=== PATIENT | female | born 1940 | race Hispanic/Latino ===

== ENCOUNTER 2016-08-30 18:02 | Emergency (ER) | payer MEDICARE ==
[2016-08-30 18:59] LABS: Basophils % (Auto) 0.7 % (0.0-1.8); Eosinophils % (Auto) 1.5 % (0.0-4.3); Hematocrit 42.2 % (30.3-42.9); Mean Corpuscular HGB Conc 33 % (30-34); Mean Corpuscular Hemoglobin 31 pg (28-32); Mean Corpuscular Volume 92 fl (79-97); Platelet Count 166 K/mm3 (140-440); Red Blood Count 4.57 M/mm3 (3.65-5.03); Red Cell Distribution Width 15.4 % (13.2-15.2); White Blood Count 8.2 K/mm3 (4.5-11.0)
[2016-08-30 19:15] LABS: Calcium 9.4 mg/dL (8.4-10.2); Chloride 93.5 mmol/L (98-107); Potassium 3.9 mmol/L (3.6-5.0)
[2016-08-30] MEDS ORDERED: MYCOSTATIN TP ONE (19:30)
[2016-08-30] MEDS ORDERED: NACL 0.9% 1000 ML 1,000 ML IV ONE (19:30)
[2016-08-30] MEDS ORDERED: ZOFRAN IV ONE (19:31)
[2016-08-30] MEDS ORDERED: MORPHINE IV ONE (19:32)
[2016-08-30 19:52] LABS: Bacteria,Urine 1+ /HPF (Negative); Bilirubin,Urine NEG (Negative); Blood,Urine LG (Negative); Ketones,Urine NEG (Negative); Leukocyte Esterase,Urine MOD (Negative); Mucus,Urine FEW /HPF; Nitrite,Urine POS (Negative); Urobilinogen,Urine < 2.0 mg/dL (<2.0)
--- NOTE | 2016-08-30 20:32 | Emergency Department Report ---
ED General Adult HPI - General Chief complaint: Nausea/Vomiting/Diarrhea Stated complaint: DIARRHEA Time Seen by Provider: 08/30/16 20:17 Source: patient, family, EMS (ems notes not available at time of chart dictation), RN notes reviewed, old records reviewed Mode of arrival: Stretcher Limitations: Physical Limitation - History of Present Illness Initial comments: Past medical history: Hypertension, osteoarthritis, diabetes type 2, history of right subdural hematoma, CABG, chronic urinary incontinence, high cholesterol Medical provider: Ant pearl This is a 76-year-old female. She is previously unknown to me. She presents to the hospital with her son for chronic diarrhea and loose stool. This has been present for months, since . To me, the patient denies fevers and chills. She currently is not vomiting. She denies abdominal pain. She denies irritative and obstructive urinary symptoms. She does admit to chronic discomfort around the vaginal area and rectal area secondary to chronic diarrhea. The patient was recently treated with Keflex for presumptive urinary tract infection. Otherwise no recent antibiotic use, no recent hospitalizations. There is no focal extremity weakness. There is no focal extremity numbness. The patient is accompanied by her son, Mr. Tye Seth; [phone] The patient reports that she can which with a walker, but does have a component of chronic weakness. Her symptoms today are chronic, not acutely worsened, and the patient cannot describe exacerbating or relieving factors. -: Gradual, week(s), month(s) Severity scale (0 -10): 7 Consistency: constant Improves with: none Worsens with: none Associated Symptoms: rash. denies: chest pain - Related Data Home Medications Medication Instructions Recorded Confirmed Last Taken Amlodipine Besylate/Benazepril 1 each PO DAILY 01/22/13 08/25/15 Unknown [amLODIPine-Benazepril 5/20 mg] Citalopram Hydrobromide 20 mg PO DAILY 01/22/13 08/25/15 08/22/15 [Citalopram HBr] 20 Gabapentin 300 mg PO BID 01/22/13 08/23/15 08/22/15 2200 Insulin NPL/Insulin Lispro 40 units SQ QAM 01/22/13 08/25/15 08/22/15 08:00 [HumaLOG Mix 75-25 Kwikpen] 40 Insulin NPL/Insulin Lispro 35 units SUB-Q QPM 08/23/15 08/25/15 08/22/15 22:00 35 Previous Rx's Medication Instructions Recorded Last Taken Type Furosemide [Lasix TAB] 40 mg PO QDAY #30 tablet 08/26/15 Unknown Rx Levofloxacin [Levaquin TAB] 500 mg PO QDAY #5 tablet 08/26/15 Unknown Rx Nadolol [Corgard] 40 mg PO QDAY #30 tablet 08/26/15 Unknown Rx Sucralfate [Carafate] 1 gm PO ACHS #30 oral.liqd 08/26/15 Unknown Rx metroNIDAZOLE [Flagyl TAB] 500 mg PO Q8HR #15 tablet 08/26/15 Unknown Rx Cephalexin [Keflex] 500 mg PO Q6HR #20 capsule 07/12/16 Unknown Rx Ondansetron [Zofran TAB] 4 mg PO Q8HR PRN #14 tablet 07/12/16 Unknown Rx Fosfomycin Tromethamine [Monurol] 3 gm PO QDAY #1 packet 08/30/16 Unknown Rx Allergies Allergy/AdvReac Type Severity Reaction Status Date / Time Penicillins Allergy Rash Verified 01/22/13 11:40 sulfamethoxazole Allergy Rash Verified 01/22/13 11:41 [From Bactrim] trimethoprim [From Bactrim] Allergy Rash Verified 01/22/13 11:41 ED Review of Systems ROS: Stated complaint: DIARRHEA Other details as noted in HPI Constitutional: denies: fever Eyes: denies: vision change ENT: denies: epistaxis Respiratory: denies: cough Cardiovascular: denies: chest pain Gastrointestinal: diarrhea Genitourinary: as per HPI Musculoskeletal: as per HPI Skin: rash, lesions Neurological: weakness Psychiatric: as per HPI ED Past Medical Hx - Past Medical History Hx Hypertension: Yes Hx Heart Attack/AMI: Yes Hx Congestive Heart Failure: No Hx Diabetes: Yes Hx Deep Vein Thrombosis: No Hx Pulmonary Embolism: No Hx Liver Disease: No Hx Renal Disease: No Hx Arthritis: Yes Hx Seizures: No Hx Kidney Stones: No Hx Asthma: No Hx COPD: No Hx Tuberculosis: No Hx Dementia: No Hx HIV: No Additional medical history: anxiety - Surgical History Hx Coronary Stent: No Hx Open Heart Surgery: Yes (APR 2013 3 VESSEL) Hx Pacemaker: No Hx Internal Defibrillator: No Additional Surgical History: hysterectomy - Social History Smoking Status: Former Smoker Substance Use Type: None - Medications Home Medications: Home Medications Medication Instructions Recorded Confirmed Last Taken Type Amlodipine Besylate/Benazepril 1 each PO DAILY 01/22/13 08/25/15 Unknown History [amLODIPine-Benazepril 5/20 mg] Citalopram Hydrobromide 20 mg PO DAILY 01/22/13 08/25/15 08/22/15 History [Citalopram HBr] 20 Gabapentin 300 mg PO BID 01/22/13 08/23/15 08/22/15 History 2200 Insulin NPL/Insulin Lispro 40 units SQ QAM 01/22/13 08/25/15 08/22/15 08:00 History [HumaLOG Mix 75-25 Kwikpen] 40 Insulin NPL/Insulin Lispro 35 units SUB-Q QPM 08/23/15 08/25/15 08/22/15 22:00 History 35 Furosemide [Lasix TAB] 40 mg PO QDAY #30 tablet 08/26/15 Unknown Rx Levofloxacin [Levaquin TAB] 500 mg PO QDAY #5 tablet 08/26/15 Unknown Rx Nadolol [Corgard] 40 mg PO QDAY #30 tablet 08/26/15 Unknown Rx Sucralfate [Carafate] 1 gm PO ACHS #30 oral.liqd 08/26/15 Unknown Rx metroNIDAZOLE [Flagyl TAB] 500 mg PO Q8HR #15 tablet 08/26/15 Unknown Rx Cephalexin [Keflex] 500 mg PO Q6HR #20 capsule 07/12/16 Unknown Rx Ondansetron [Zofran TAB] 4 mg PO Q8HR PRN #14 tablet 07/12/16 Unknown Rx Fosfomycin Tromethamine [Monurol] 3 gm PO QDAY #1 packet 08/30/16 Unknown Rx ED Physical Exam - General Limitations: Physical Limitation General appearance: alert, in no apparent distress - Head Head exam: Present: atraumatic, normocephalic - Eye Eye exam: Present: normal appearance, EOMI. Absent: nystagmus - ENT ENT exam: Present: normal exam, normal orophraynx, mucous membranes moist, normal external ear exam - Neck Neck exam: Present: normal inspection, full ROM. Absent: tenderness, meningismus - Respiratory Respiratory exam: Present: normal lung sounds bilaterally. Absent: respiratory distress, wheezes, rales, rhonchi, stridor, chest wall tenderness, accessory muscle use, decreased breath sounds - Cardiovascular Cardiovascular Exam: Present: regular rate, normal rhythm, normal heart sounds. Absent: bradycardia, tachycardia, irregular rhythm, systolic murmur, diastolic murmur, rubs, gallop - GI/Abdominal GI/Abdominal exam: Present: soft, normal bowel sounds. Absent: distended, tenderness, guarding, rebound, rigid - Rectal Rectal exam: Absent: normal inspection (patient has chronic excoriated lesions around the rectum and buttocks.) - External exam: Present: lesions (excoriations and erythema.) Speculum exam: Present: other (escorted by nurse Judson Meza during rectal examination and external vaginal examination ) - Extremities Exam Extremities exam: Present: normal inspection, full ROM, normal capillary refill. Absent: tenderness, pedal edema, joint swelling, calf tenderness - Back Exam Back exam: Present: normal inspection, full ROM. Absent: tenderness, CVA tenderness (R), CVA tenderness (L), muscle spasm, paraspinal tenderness, vertebral tenderness - Neurological Exam Neurological exam: Present: alert, oriented X3, other (Extraocular movements intact. Tongue midline. No facial droop. Facial sensation intact to light touch in the V1, V2, V3 distribution bilaterally. 5 and 5 strength in 4 extremities.. Sensation is intact to light touch in 4 extremities.). Absent: motor sensory deficit - Psychiatric Psychiatric exam: Present: normal affect, normal mood - Skin Skin exam: Present: warm, dry, intact, normal color. Absent: rash ED Course Vital Signs 08/30/16 08/30/16 08/30/16 18:37 20:35 21:50 Temperature 98.7 F Pulse Rate 90 91 H 87 Respiratory 16 18 18 Rate Blood Pressure 139/74 140/68 135/82 [Left] O2 Sat by Pulse 99 99 96 Oximetry - Reevaluation(s) Reevaluation #1: 08/30/16 21:23 Differential diagnosis: Chronic diarrhea, dehydration, electrolyte derangement, urinary tract infection, chronic debility, skin excoriation secondary to chronic diarrhea Assessment and plan: 76-year-old female who is brought to the hospital with son for what is essentially a chronic problem. She is afebrile, tolerating liquid feeds, to me she denies nausea and vomiting, only complains of chronic diarrhea. Her urinalysis is appreciated, not impressive, recently had a negative urine culture in the context of Keflex in menstruation, we will send a repeat urine culture. Stool is guaiac negative, hemoglobin and hematocrit stable, white blood cell count not elevated, patient moves for extremity spontaneously, and is able to ambulate without 2 person assist. The patient is accompanied by her son, and I instructed the patient's son that we would have case management contact him through phone number and email to facilitate outpatient evaluation for either correction facility placement or home health evaluation. The patient's son further informs me that the patient has follow-up with a wafer substrate tester with [place]. The patient was initially hyperglycemic and improved with IV fluids and IV insulin. There does not appear to be an emergent condition or decompensation at this time that would require admission to the hospital. The patient is to follow-up as an outpatient, and her son is encouraged to mobilize himself and family members to assist in her care and help with her activities of daily living. ED Medical Decision Making - Lab Data Result diagrams: 08/30/16 18:33 08/30/16 18:33 Vital Signs 08/30/16 08/30/16 18:37 20:35 Temperature 98.7 F Pulse Rate 90 91 H Respiratory 16 18 Rate Blood Pressure 139/74 140/68 [Left] O2 Sat by Pulse 99 99 Oximetry Labs 08/30/16 08/30/16 08/30/16 18:33 18:33 18:33 WBC 8.2 RBC 4.57 Hgb 14.0 Hct 42.2 MCV 92 MCH 31 MCHC 33 RDW 15.4 H Plt Count 166 Lymph % (Auto) 14.1 [place] % (Auto) 8.4 H Eos % (Auto) 1.5 Baso % (Auto) 0.7 Lymph # 1.1 L [place] # 0.7 Eos # 0.1 Baso # 0.1 Seg Neutrophils % 75.3 H Seg Neutrophils # 6.1 Sodium 136 L Potassium 3.9 Chloride 93.5 L Carbon Dioxide 24 Anion Gap 22 BUN 16 Creatinine 1.0 Estimated GFR 54 BUN/Creatinine Ratio 16.00 Glucose 498 H Calcium 9.4 Lipase 36 Urine Color Urine Turbidity Urine pH Ur Specific [place] Urine Protein Urine Glucose (UA) Urine Ketones Urine Blood Urine Nitrite Urine Bilirubin Urine Urobilinogen Ur Leukocyte Esterase Urine WBC (Auto) Urine RBC (Auto) U Epithel Cells (Auto) Urine Bacteria (Auto) Urine Mucus 08/30/16 19:26 WBC RBC Hgb Hct MCV MCH MCHC RDW Plt Count Lymph % (Auto) [place] % (Auto) Eos % (Auto) Baso % (Auto) Lymph # [place] # Eos # Baso # Seg Neutrophils % Seg Neutrophils # Sodium Potassium Chloride Carbon Dioxide Anion Gap BUN Creatinine Estimated GFR BUN/Creatinine Ratio Glucose Calcium Lipase Urine Color Yellow Urine Turbidity Cloudy Urine pH 6.0 Ur Specific [place] 1.033 H Urine Protein 100 mg/dl Urine Glucose (UA) >=500 Urine Ketones Neg Urine Blood Lg Urine Nitrite Pos Urine Bilirubin Neg Urine Urobilinogen < 2.0 Ur Leukocyte Esterase Mod Urine WBC (Auto) 1.0 Urine RBC (Auto) 16.0 U Epithel Cells (Auto) < 1.0 Urine Bacteria (Auto) 1+ Urine Mucus Few Critical care attestation.: If time is entered above; I have spent that time in minutes in the direct care of this critically ill patient, excluding procedure time. ED Disposition Clinical Impression: Diarrhea, Hyperglycemia Disposition: DISCHARGED TO HOME OR SELFCARE Is pt being admited?: No Does the pt Need Aspirin: No Condition: Stable Instructions: Chronic Diarrhea (ED), Diabetic Hyperglycemia (ED) Additional Instructions: continue current outpatient medications. Cultures have been sent today, I recommend that you have a primary care doctor or wafer substrate tester contact the medical records department to obtain culture results. The urine culture is sent today, and a prescription for antibiotics has been dispensed, but do not fill the prescription unless you specifically received a call that the urine culture is positive. I recommended that family members assist in your care, including cleaning after bowel movements, and help with activities of daily living. In addition, a consult was placed to care management and social media developer and they will contact your son at the phone number and email that he has provided, to facilitate further outpatient care and management. Dr. Luna is a local gastroenterology specialist, I recommend that you follow up with a GI specialist within the next week. Return to the ER right away with intractable nausea or vomiting, inability to tolerate liquid feeds, fevers, chills, new, worsening or different symptoms. Do not take the antibiotics unless you received a call that the culture is positive and you're specifically instructed to take it. Prescriptions: Fosfomycin Tromethamine [Monurol] 3 gm PO QDAY #1 packet Referrals: PRIMARY CARE, [Primary Care Provider] - 3-5 Days NICOLE LUNA MD [Staff Physician] - 3-5 Days ELEANOR DILL MD [Staff Physician] - 3-5 Days
[2016-08-30 22:07] VITALS: BP 135/82
== END 2016-08-30 21:50 | disposition home or self-care (01) ==
LOC: ED 18:02
DX: E11.65 Type 2 diabetes mellitus with hyperglycemia (principal); R19.7 Diarrhea, unspecified; I10 Essential (primary) hypertension; I25.2 Old myocardial infarction; M19.90 Unspecified osteoarthritis, unspecified site; F41.9 Anxiety disorder, unspecified; Z90.710 Acquired absence of both cervix and uterus; Z87.891 Personal history of nicotine dependence; Z79.4 Long term (current) use of insulin; Z88.0 Allergy status to penicillin; Z88.8 Allergy status to other drugs, medicaments and biological substances
CPT/HCPCS: 36415; 51702; 80048; 81001; 82271; 82962; 83690; 85025; 87076; 87086; 87186; 87493; 96361; 96374; 96375; 99284; J2270; J2405; J7030; J1815

== ENCOUNTER 2017-10-01 04:50 | Inpatient (IN) | payer MEDICARE ==
[2017-10-01 06:47] LABS: Basophils # (Auto) 0.1 K/mm3 (0.0-0.1); Basophils % (Auto) 1.2 % (0.0-1.8); Eosinophils # (Auto) 0.3 K/mm3 (0.0-0.4); Eosinophils % (Auto) 4.5 % (0.0-4.3); Hemoglobin 7.5 gm/dl (10.1-14.3); Lymphocytes # (Auto) 1.4 K/mm3 (1.2-5.4); Lymphocytes % (Auto) 20.4 % (13.4-35.0); Mean Corpuscular HGB Conc 31 % (30-34); Mean Corpuscular Volume 71 fl (79-97); Monocytes # (Auto) 0.6 K/mm3 (0.0-0.8); Red Blood Count 3.37 M/mm3 (3.65-5.03); Red Cell Distribution Width 16.1 % (13.2-15.2)
[2017-10-01 06:54] LABS: Mean Corpuscular Hemoglobin 22 pg (28-32); Platelet Count 246 K/mm3 (140-440)
[2017-10-01] MEDS ORDERED: ZOFRAN IV ONE ×2 (06:58→10:26)
[2017-10-01] MEDS ORDERED: NITRO-BID 2% TP ONE ×2 (06:58→09:30)
[2017-10-01] MEDS ORDERED: MORPHINE IV ONE (06:58)
[2017-10-01 07:02] LABS: BUN/Creatinine Ratio 14; Blood Urea Nitrogen 13 mg/dL (7-17); Calcium 8.7 mg/dL (8.4-10.2); Hemolysis Index 3
--- NOTE | 2017-10-01 07:04 | Emergency Department Report ---
HPI - General Chief Complaint: Fall Time Seen by Provider: 10/01/17 06:46 - HPI HPI: Room 10 The patient is a 77-year-old female presenting with a chief complaint of chest pain. The patient states her chest pain began at approximately 01:00. The patient states she has substernal chest pain described as dull in nature radiating to her throat and left upper extremity. The patient states she took a baby aspirin at the onset of the pain for her chest pain persisted. The patient states approximately 20 minutes later she took a second baby aspirin and the chest pain subsided. The patient states she went to the bathroom and somehow fell striking the back of her head. Patient denies loss of consciousness but states she has a headache. In the ED the patient states her chest pain returned and she currently gives it a score of 9/10 Location: Chest, head, see above Duration: [See above] Quality: dull Severity: [See above] Modifying factors: [see above] Context: [see above] Mode of transportation: [not driving] ED Past Medical Hx - Past Medical History Hx Hypertension: Yes Hx Heart Attack/AMI: Yes Hx Diabetes: Yes Hx Arthritis: Yes Additional medical history: anxiety - Surgical History Hx Open Heart Surgery: Yes (APR 2013 3 VESSEL) Additional Surgical History: hysterectomy - Family History Family history: no significant - Social History Smoking Status: Former Smoker (none since 1990) Substance Use Type: None - Medications Home Medications: Home Medications Medication Instructions Recorded Confirmed Last Taken Type Amlodipine Besylate/Benazepril 1 each PO DAILY 01/22/13 08/25/15 Unknown History [amLODIPine-Benazepril 5/20 mg] Citalopram Hydrobromide 20 mg PO DAILY 01/22/13 08/25/15 08/22/15 History [Citalopram HBr] 20 Gabapentin 300 mg PO BID 01/22/13 08/23/15 08/22/15 History 2200 Insulin Lispro Protamin/Lispro 40 units SQ QAM 01/22/13 08/25/15 08/22/15 08:00 History [HumaLOG Mix 75-25 Kwikpen] 40 Insulin NPL/Insulin Lispro 35 units SUB-Q QPM 08/23/15 08/25/15 08/22/15 22:00 History 35 Furosemide [Lasix TAB] 40 mg PO QDAY #30 tablet 08/26/15 Unknown Rx Levofloxacin [Levaquin TAB] 500 mg PO QDAY #5 tablet 08/26/15 Unknown Rx Nadolol [Corgard] 40 mg PO QDAY #30 tablet 08/26/15 Unknown Rx Sucralfate [Carafate] 1 gm PO ACHS #30 oral.liqd 08/26/15 Unknown Rx metroNIDAZOLE [Flagyl TAB] 500 mg PO Q8HR #15 tablet 08/26/15 Unknown Rx Cephalexin [Keflex] 500 mg PO Q6HR #20 capsule 07/12/16 Unknown Rx Ondansetron [Zofran TAB] 4 mg PO Q8HR PRN #14 tablet 07/12/16 Unknown Rx Fosfomycin Tromethamine [Monurol] 3 gm PO QDAY #1 packet 08/30/16 Unknown Rx ED Review of Systems ROS: Stated complaint: CHEST PAIN Other details as noted in HPI Constitutional: denies: diaphoresis ENT: throat pain Respiratory: shortness of breath (unknown) Cardiovascular: chest pain Gastrointestinal: denies: nausea, vomiting Neurological: headache Physical Exam - Physical Exam Vital Signs: Vital Signs 10/01/17 10/01/17 04:57 05:21 Temperature 97.9 F 97.8 F Pulse Rate 109 H Respiratory 12 Rate Blood Pressure 146/91 O2 Sat by Pulse 94 Oximetry Physical Exam: GENERAL: The patient is well-developed well-nourished female lying on stretcher appearing to be in mild discomfort HEENT: Normocephalic. Atraumatic. Extraocular motions are intact. Patient has moist mucous membranes. NECK: Supple. No axial step offs. When asked if she is tender to palpation the patient replies "I don't know." CHEST/LUNGS: There is no respiratory distress noted. HEART/CARDIOVASCULAR: Regular. There is no tachycardia. There is no gallop rub or murmur. ABDOMEN: Abdomen is soft, nontender. Patient has normal bowel sounds. There is no abdominal distention. SKIN: There is no rash. There is no edema. There is no diaphoresis. NEURO: The patient is awake, alert, and oriented. The patient is cooperative. The patient has no focal neurologic deficits. The patient has normal speech. Cranial nerves II through XII grossly intact, no drift MUSCULOSKELETAL: There is no evidence of acute injury. RECTAL: Guaiac negative stool ED Course Vital Signs 10/01/17 10/01/17 04:57 05:21 Temperature 97.9 F 97.8 F Pulse Rate 109 H Respiratory 12 Rate Blood Pressure 146/91 O2 Sat by Pulse 94 Oximetry - Consultations Consultation #1: 10/01/17 08:06 [facility] paged 10/01/17 08:26 Case discussed with [place] physician . will accept patient in transfer ED Medical Decision Making - Lab Data Result diagrams: 10/01/17 06:06 10/01/17 06:06 Laboratory Tests 10/01/17 10/01/17 10/01/17 06:06 06:06 06:40 WBC 7.0 RBC 3.37 L Hgb 7.5 L Hct 24.0 L MCV 71 L MCH 22 L MCHC 31 RDW 16.1 H Plt Count 246 Lymph % (Auto) 20.4 [place] % (Auto) 8.0 H Eos % (Auto) 4.5 H Baso % (Auto) 1.2 Lymph # 1.4 [place] # 0.6 Eos # 0.3 Baso # 0.1 Seg Neutrophils % 65.9 Seg Neutrophils # 4.6 Sodium 136 L Potassium 4.5 Chloride 102.6 Carbon Dioxide 22 Anion Gap 16 BUN 13 Creatinine 0.9 Estimated GFR > 60 BUN/Creatinine Ratio 14 Glucose 228 H Calcium 8.7 Total Creatine Kinase 164 H CK-MB (CK-2) 4.1 H CK-MB (CK-2) Rel Index 2.5 Troponin T 0.031 H Triglycerides 82 Cholesterol 172 LDL Cholesterol Direct 123 HDL Cholesterol 50 Cholesterol/HDL Ratio 3.44 - EKG Data -: EKG Interpreted by Me EKG shows normal: sinus rhythm Rate: normal - EKG Data When compared to previous EKG there are: changes noted (when compared to EKG dated 07/12/2016) Interpretation: subendocardial ischemia (ST depressions in leads 2, 3, aVF, V4, V6) - Radiology Data Radiology results: report reviewed (CT head), image reviewed (chest x-ray, CT head) interpreted by me: Chest x-ray-no focal infiltrates, no pneumothorax. CT head (discussed with radiologist)-diffuse cerebral edema when compared to previous CT. No hemorrhage. No skull fractures. No midline shift - Differential Diagnosis ACS, ICH, closed head injury, pericarditis, GERD Critical Care Time: Yes Critical care time in (mins) excluding proc time.: 30 Critical care attestation.: If time is entered above; I have spent that time in minutes in the direct care of this critically ill patient, excluding procedure time. ED Disposition Clinical Impression: Chest pain, Closed head injury, NSTEMI (non-ST elevated myocardial infarction) , Symptomatic anemia Disposition: [id number]/TX-[id number] ANOTHER TYPE HLTHCARE Is pt being admited?: No Does the pt Need Aspirin: No Condition: Serious Instructions: Chest Pain (ED) Referrals: PRIMARY CARE, [Primary Care Provider] - 3-5 Days Time of Disposition: 08:29 (awaiting transport)
[2017-10-01 07:14] LABS: Creatine Kinase MB 4.1 ng/mL (0.0-4.0)
[2017-10-01 07:50] LABS: Chol/HDL Ratio 3.44 %
[2017-10-01] MEDS ORDERED: HEPARIN 10,000 UNITS/10 ML IV ONE (08:03)
--- NOTE | 2017-10-01 09:00 | Cat Scan Report ---
FINAL REPORT EXAM: CT CERVICAL SPINE WO CON HISTORY: fall striking back of head. Headache TECHNIQUE: A noncontrast CT of the cervical spine was performed. Coronal and sagittal reformatted images were obtained. PRIORS: None. FINDINGS: There is a mild compression deformity at T1 which is of unknown age. There is no other evidence for fracture. There is multilevel moderate degenerative disc disease. There is also diffuse moderate facet arthropathy. Uncovertebral spurring and facet joint enlargement causing multilevel [id number] neuroforaminal narrowing, most notable on the left at C3-4. There is a central disc herniation at C2-3 causing mild central spinal stenosis. IMPRESSION: There is a mild compression deformity of T1 which is of unknown age. Moderate disc and facet degenerative changes throughout the cervical spine.
--- NOTE | 2017-10-01 09:00 | XRay Report ---
FINAL REPORT EXAM: XR CHEST 1V AP HISTORY: chest pain TECHNIQUE: A portable upright view the chest was obtained. There are no previous studies available for comparison. FINDINGS: There are sternotomy sutures. The heart size is normal. The lungs reveal diffuse interstitial prominence bilaterally. How much of this is on a chronic basis versus secondary to interstitial edema is uncertain. Pleural fluid is not seen. The skeletal structures reveal generalized osteoporosis. IMPRESSION: Diffuse interstitial prominence as described. How much of this is on a chronic basis versus secondary to interstitial edema is uncertain.
--- NOTE | 2017-10-01 09:00 | Cat Scan Report ---
FINAL REPORT EXAM: CT HEAD/BRAIN WO CON HISTORY: fall striking back of head. Headache TECHNIQUE: CT of the head was performed. No intravenous contrast was administered. PRIORS: As compared 07/12/2016 FINDINGS: As compared to the prior study, there is now effacement of the cerebral sulci diffusely. Basal cisterns are smaller. Brambila-white interface is less well seen. Findings are compatible with diffuse cerebral edema. There is no evidence of intracranial hemorrhage. Ventricular size is prominent but unchanged. There are no abnormal extra-axial fluid collections. There is no skull fracture seen. The visualized aspects of the sinuses are clear. IMPRESSION: Suspect diffuse cerebral edema. Dr. Soriano informed of findings on 10/01/2017 at 7:54 a.m. EST.
[2017-10-01 09:06] LABS: Hematocrit 26.2 % (30.3-42.9); Hemoglobin 7.9 gm/dl (10.1-14.3)
[2017-10-01] MEDS ORDERED: ZOFRAN ONE (09:25)
[2017-10-01] MEDS ORDERED: MORPHINE ONE (09:29)
[2017-10-01 09:31] LABS: INR 1.04 (0.87-1.13)
[2017-10-01] MEDS ORDERED: SUBLIMAZE IV ONE (10:26)
[2017-10-01] MEDS ORDERED: XOPENEX IH ONE ×2 (10:32→11:03)
[2017-10-01] MEDS ORDERED: ATROVENT IH ONE ×2 (10:33→11:03)
[2017-10-01] MEDS ORDERED: HEPARIN 10,000 UNITS/10 ML ONE (10:36)
[2017-10-01] MEDS: HEPARIN/ 0.45% NACL-25,000 UNIT/500 ML 25,000 UNIT/500 ML BAG IV SCH (10:47)
[2017-10-01] MEDS ORDERED: ZOFRAN IV PRN ×2 (15:08→22:42)
[2017-10-01] MEDS ORDERED: SODIUM CHLORIDE FLUSH SYRINGE 10 ML IV PRN ×2 (15:08→22:42)
[2017-10-01] MEDS ORDERED: TYLENOL PO PRN ×2 (15:08→22:42)
[2017-10-01] MEDS ORDERED: MORPHINE IV PRN (22:42)
--- NOTE | 2017-10-01 22:42 | Event Note ---
Date: 10/01/17 See Dictated H/p in reports
[2017-10-01] MEDS ORDERED: ZOFRAN PO PRN (22:55)
[2017-10-01] MEDS ORDERED: NACL 0.9% 1000 ML 1,000 ML IV SCH (23:00)
[2017-10-02 05:14] LABS: Hematocrit 27.7 % (30.3-42.9); Hemoglobin 8.5 gm/dl (10.1-14.3); Mean Corpuscular HGB Conc 31 % (30-34); Mean Corpuscular Volume 72 fl (79-97); Platelet Count 278 K/mm3 (140-440); Red Blood Count 3.86 M/mm3 (3.65-5.03); Red Cell Distribution Width 16.3 % (13.2-15.2)
[2017-10-02 05:18] LABS: Mean Corpuscular Hemoglobin 22 pg (28-32)
[2017-10-02 05:24] LABS: Alanine Aminotransferase 11 units/L (7-56); Albumin 3.7 g/dL (3.9-5); BUN/Creatinine Ratio 10; Blood Urea Nitrogen 8 mg/dL (7-17); Hemolysis Index 2
[2017-10-02] MEDS ORDERED: D50W (25GM) Syringe IV PRN (07:26)
[2017-10-02] MEDS ORDERED: HumaLOG SUB-Q SCH (07:30)
[2017-10-02] MEDS: CARAFATE PO SCH ×4 (08:16→22:07)
[2017-10-02] MEDS: HumaLOG SUB-Q SCH ×4 (09:05→22:07)
[2017-10-02] MEDS: NORVASC PO SCH (09:22)
[2017-10-02] MEDS: CORGARD PO SCH (09:22)
[2017-10-02] MEDS: PEPCID IV SCH (09:23)
[2017-10-02] MEDS: LASIX PO SCH (09:23)
[2017-10-02] MEDS: ZESTRIL PO SCH (09:23)
[2017-10-02] MEDS: NEURONTIN PO SCH ×2 (09:23→22:07)
[2017-10-02] MEDS: celeXA PO SCH (09:23)
[2017-10-02] MEDS: SODIUM CHLORIDE FLUSH SYRINGE 10 ML IV SCH (09:25)
[2017-10-02] MEDS ORDERED: NON-FORMULARY (Nadolol [Corgard] 40 MG) PO SCH (10:00)
[2017-10-02] MEDS ORDERED: INSULIN LISPRO PROTAMIN SQ SCH (10:00)
[2017-10-02] MEDS ORDERED: SODIUM CHLORIDE FLUSH SYRINGE 10 ML IV SCH (10:00)
[2017-10-02] MEDS ORDERED: LISPRO SQ SCH (10:00)
[2017-10-02] MEDS ORDERED: BENAZEPRIL PO SCH (10:00)
[2017-10-02] MEDS ORDERED: PEPCID IV SCH (10:00)
[2017-10-02] MEDS ORDERED: AMLODIPINE BESYLATE PO SCH (10:00)
[2017-10-02] MEDS ORDERED: MONUROL PO SCH (10:00)
--- NOTE | 2017-10-02 10:00 | Progress Note ---
Assessment and Plan Assessment and plan: --Non-ST elevation CT; mild elevation of cardiac enzymes Ischemia needs to be ruled out in the setting of coronary artery disease status post CABG Serial cardiac enzymes, continue cardiac medications, echocardiogram Cardiology consulted, discussed with Continue heparin drip --History of coronary artery disease status post CABG; continue current cardiac medicines --Dyslipidemia; continue statin --Type 2 diabetes mellitus; Accu-Chek sliding scale coverage and ADA diet and insulin hemoglobin A1c 9.5 --Diabetic neuropathy; continue gabapentin --DVT prophylaxis; patient is already on heparin drip --Full CODE STATUS Closely monitor the patient and adjust the management as needed Plan of care is reviewed with the patient, her nurse and the flux tube attendant. Patient is stable to be transferred out of ICU to telemetry Critical care time 31 minutes History Interval history: Patient seen and examined, medical records reviewed 77-year-old female patient with significant history of coronary artery disease status post CABG follows with Dr. Stef Hampton[[facility]] Was admitted through emergency room with chest pain of one-day duration Initially evaluated noted to have mild elevation of troponin, admitted to ICU as non-ST elevation CT, started on heparin drip Patient is comfortable, denies chest pain or shortness of breath Alert awake oriented 3 Vital signs reviewed No new events reported by the nursing Hospitalist Physical - Constitutional Vitals: Temp Pulse Resp BP Pulse Ox 98.3 F 110 H 18 134/63 98 10/02/17 08:00 10/02/17 08:40 10/02/17 08:40 10/02/17 08:40 10/02/17 08:40 General appearance: Present: no acute distress, well-nourished - EENT Eyes: Present: PERRL, EOM intact - Neck Neck: Present: supple, normal ROM - Respiratory Respiratory effort: normal Respiratory: bilateral: diminished, negative: rales, rhonchi, wheezing - Cardiovascular Rhythm: regular Heart Sounds: Present: S1 & S2 - Extremities Extremities: no ischemia, No edema - Abdominal General gastrointestinal: soft, non-tender, non-distended, normal bowel sounds - Integumentary Integumentary: Present: clear, warm - Psychiatric Psychiatric: appropriate mood/affect, cooperative - Neurologic Neurologic: CNII-XII intact, moves all extremities Results - Labs CBC & Chem 7: 10/02/17 04:27 10/02/17 04:27 Labs: Laboratory Last Values WBC 7.8 K/mm3 (4.5-11.0) 10/02/17 04:27 RBC 3.86 M/mm3 (3.65-5.03) 10/02/17 04:27 Hgb 8.5 gm/dl (10.1-14.3) L 10/02/17 04:27 Hct 27.7 % (30.3-42.9) L 10/02/17 04:27 MCV 72 fl (79-97) L 10/02/17 04:27 MCH 22 pg (28-32) L 10/02/17 04:27 MCHC 31 % (30-34) 10/02/17 04:27 RDW 16.3 % (13.2-15.2) H 10/02/17 04:27 Plt Count 278 K/mm3 (140-440) 10/02/17 04:27 Lymph % (Auto) Director Music 10/02/17 04:27 [place] % (Auto) Director Music 10/02/17 04:27 Eos % (Auto) Director Music 10/02/17 04:27 Baso % (Auto) Director Music 10/02/17 04:27 Lymph # Director Music 10/02/17 04:27 [place] # Director Music 10/02/17 04:27 Eos # Director Music 10/02/17 04:27 Baso # Director Music 10/02/17 04:27 Seg Neutrophils % Director Music 10/02/17 04:27 Seg Neutrophils # Director Music 10/02/17 04:27 PT 14.1 Sec. (12.2-14.9) 10/01/17 08:22 INR 1.04 (0.87-1.13) 10/01/17 08:22 APTT 25.0 Sec. (24.2-36.6) 10/01/17 08:22 Heparin Anti-Xa Level 0.62 U.I./ml (0.3-0.7) 10/01/17 16:41 Sodium 139 mmol/L (137-145) 10/02/17 04:27 Potassium 4.2 mmol/L (3.6-5.0) 10/02/17 04:27 Chloride 101.7 mmol/L (98-107) 10/02/17 04:27 Carbon Dioxide 23 mmol/L (22-30) 10/02/17 04:27 Anion Gap 19 mmol/L 10/02/17 04:27 BUN 8 mg/dL (7-17) 10/02/17 04:27 Creatinine 0.8 mg/dL (0.7-1.2) 10/02/17 04:27 Estimated GFR > 60 ml/min 10/02/17 04:27 BUN/Creatinine Ratio 10 % 10/02/17 04:27 Glucose 228 mg/dL (65-100) H 10/02/17 04:27 POC Glucose 305 (70-105) H 10/02/17 08:10 Hemoglobin A1c 9.5 % (4-6) H 10/01/17 01:00 Calcium 9.0 mg/dL (8.4-10.2) 10/02/17 04:27 Total Bilirubin 0.40 mg/dL (0.1-1.2) 10/02/17 04:27 AST 21 units/L (5-40) 10/02/17 04:27 ALT 11 units/L (7-56) 10/02/17 04:27 Alkaline Phosphatase 74 units/L (35-129) 10/02/17 04:27 Total Creatine Kinase 164 units/L (30-135) H 10/01/17 06:40 CK-MB (CK-2) 4.1 ng/mL (0.0-4.0) H 10/01/17 06:40 CK-MB (CK-2) Rel Index 2.5 (0-4) 10/01/17 06:40 Troponin T 0.043 ng/mL (0.00-0.029) H D 10/01/17 09:26 Total Protein 6.4 g/dL (6.3-8.2) 10/02/17 04:27 Albumin 3.7 g/dL (3.9-5) L 10/02/17 04:27 Albumin/Globulin Ratio 1.4 % 10/02/17 04:27 Triglycerides 82 mg/dL (2-149) 10/01/17 06:40 Cholesterol 172 mg/dL (50-199) 10/01/17 06:40 LDL Cholesterol Direct 123 mg/dL (50-130) 10/01/17 06:40 HDL Cholesterol 50 mg/dL (40-59) 10/01/17 06:40 Cholesterol/HDL Ratio 3.44 % 10/01/17 06:40
--- NOTE | 2017-10-02 10:27 | Event Note ---
Date: 10/02/17 patient admitted to ICU on heparin drip. Currently chest pain free, other vitals stable. Unsure of exact reasoning for admit to unit. Spoke with [facility] who agrees with transfer out. Can follow up with cardiology on the floor.
[2017-10-02 11:21] LABS: Creatine Kinase MB 5.2 ng/mL (0.0-4.0)
[2017-10-02 16:10] LABS: Creatine Kinase MB 4.1 ng/mL (0.0-4.0)
[2017-10-02] MEDS: HEPARIN/ 0.45% NACL-25,000 UNIT/500 ML 25,000 UNIT/500 ML BAG IV SCH (19:26)
[2017-10-03 08:55] LABS: Hematocrit 27.1 % (30.3-42.9); Hemoglobin 8.7 gm/dl (10.1-14.3)
--- NOTE | 2017-10-03 09:39 | Consultation ---
History of Present Illness Consult date: 10/03/17 Consult reason: chest pain, hypertension History of present illness: 77 year old female who is presenting with chest pain and shortness of breath. Pain is substernal and tended to radiate to the back dose no association with diaphoresis. Patient follows with Dr. Stef Hampton is her floor layer apprentice. Patient was admitted for further evaluation and management. Past History Past Medical History: CAD, COPD, GERD, hypertension Past Surgical History: CABG Social history: denies: smoking, alcohol abuse Family history: no significant family history Medications and Allergies Allergies Allergy/AdvReac Type Severity Reaction Status Date / Time Penicillins Allergy Rash Verified 01/22/13 11:40 sulfamethoxazole Allergy Rash Verified 01/22/13 11:41 [From Bactrim] trimethoprim [From Bactrim] Allergy Rash Verified 01/22/13 11:41 Home Medications Medication Instructions Recorded Confirmed Last Taken Type Nadolol [Corgard] 40 mg PO QDAY #30 tablet 08/26/15 10/02/17 2 Days Ago Rx ~09/30/17 40 Cephalexin [Keflex] 500 mg PO Q6HR #20 capsule 07/12/16 10/02/17 2 Days Ago Rx ~09/30/17 Ondansetron [Zofran TAB] 4 mg PO Q8HR PRN #14 tablet 07/12/16 10/02/17 Unknown Rx Aspirin [Aspirin BABY CHEW TAB] 81 mg PO QDAY 10/02/17 10/02/17 2 Days Ago History ~09/30/17 Duloxetine HCl [DULoxetine] 60 mg PO DAILY 10/02/17 10/02/17 2 Days Ago History ~09/30/17 Furosemide [Lasix] 20 mg PO DAILY 10/02/17 10/02/17 2 Days Ago History ~09/30/17 Insulin NPH Hum/Reg Insulin Hm 45 unit SQ QAM 10/02/17 10/02/17 2 Days Ago History [Humulin 70-30 Vial] ~09/30/17 Levothyroxine [Synthroid] 100 mg .ROUTE DAILY 10/02/17 10/02/17 2 Days Ago History ~09/30/17 Omeprazole 20 mg PO DAILY 10/02/17 10/02/17 2 Days Ago History ~09/30/17 Senna 8.6 mg .ROUTE DAILY 10/02/17 10/02/17 2 Days Ago History ~09/30/17 Trospium Chloride [Trospium 20 mg PO DAILY 10/02/17 10/02/17 2 Days Ago History Chloride ER] ~09/30/17 Active Meds: Active Medications Acetaminophen (Tylenol) 650 mg PO Q4H PRN PRN Reason: Pain MILD(1-3)/Fever >100.5/JAIN Amlodipine Besylate (Norvasc) 5 mg PO QDAY [facility] Last Admin: 10/02/17 09:22 Dose: 5 mg Citalopram Hydrobromide (Celexa) 20 mg PO DAILY [facility] Last Admin: 10/02/17 09:23 Dose: 20 mg Dextrose (D50w (25gm) Syringe) 50 ml IV PRN PRN PRN Reason: Hypoglycemia Famotidine (Pepcid) 20 mg IV DAILY [facility] Last Admin: 10/02/17 09:23 Dose: 20 mg Furosemide (Lasix) 40 mg PO QDAY [facility] Last Admin: 10/02/17 09:23 Dose: 40 mg Gabapentin (Neurontin) 300 mg PO BID [facility] Last Admin: 10/02/17 22:07 Dose: 300 mg Heparin Sodium/Sodium Chloride (Heparin/ 0.45% Nacl-25,000 Unit/500 Ml) 25,000 unit in 500 mls @ 16 mls/hr IV TITRATE [facility]; Protocol Last Admin: 10/02/17 19:26 Dose: 800 units/hr, 16 mls/hr Sodium Chloride (Nacl 0.9% 1000 Ml) 1,000 mls @ 42 mls/hr IV DIRECT MARQUISE Insulin Human Isoph/Insulin Regular (Humulin 70/30) 40 unit SUB-Q QAMDIAB [facility] Last Admin: 10/02/17 09:04 Dose: 40 unit Insulin Human Lispro (Humalog) 0 unit SUB-Q ACHS [facility]; Protocol Last Admin: 10/02/17 22:07 Dose: 2 unit Lisinopril (Zestril) 20 mg PO QDAY [facility] Last Admin: 10/02/17 09:23 Dose: 20 mg Morphine Sulfate (Morphine) 2 mg IV Q4H PRN PRN Reason: Pain, Moderate (4-6) Nadolol (Corgard) 40 mg PO QDAY [facility] Last Admin: 10/02/17 09:22 Dose: 40 mg Ondansetron HCl (Zofran) 4 mg IV Q8H PRN PRN Reason: Nausea And Vomiting Ondansetron HCl (Zofran) 4 mg PO Q8HR PRN PRN Reason: Nausea Oxycodone/Acetaminophen (Percocet 5/325) 1 tab PO Q6H PRN PRN Reason: Pain, Moderate (4-6) Sodium Chloride (Sodium Chloride Flush Syringe 10 Ml) 10 ml IV BID [facility] Last Admin: 10/02/17 09:25 Dose: 10 ml Sodium Chloride (Sodium Chloride Flush Syringe 10 Ml) 10 ml IV PRN PRN PRN Reason: LINE FLUSH Sucralfate (Carafate) 1 gm PO ACHS [facility] Last Admin: 10/02/17 22:07 Dose: 1 gm Review of Systems Constitutional: no weight loss, no weight gain, no anorexia, no fatigue, no weakness Ears, nose, mouth and throat: no deferred, no ear pain, no nose pain, no sinus pain, no epistaxis, no dysphagia, no voice changes Cardiovascular: no chest pain, no orthopnea, no palpitations, no edema, no dyspnea on exertion, no paroxysmal nocturnal dyspnea Respiratory: no cough, no cough with sputum, no excessive sputum, no hemoptysis , no shortness of breath, no congestion, no wheezing Gastrointestinal: no nausea, no vomiting, no diarrhea, no melena, no hematochezia Genitourinary Female: no flank pain, no menorrhagia, no dysuria, no urinary frequency Musculoskeletal: no neck stiffness, no neck pain, no low back pain, no shooting leg pain, no morning stiffness, no muscle weakness Integumentary: no rash, no pruritis Neurological: headaches, no head injury, no weakness, no seizures Endocrine: no cold intolerance, no heat intolerance, no excessive thirst, no polydipsia, no polyuria, no nocturia Hematologic/Lymphatic: no easy bruising, no easy bleeding Allergic/Immunologic: no urticaria, no allergic rhinitis Physical Examination Vital Signs Temp Pulse Resp BP Pulse Ox 97.9 F 109 H 12 146/91 94 10/01/17 04:57 10/01/17 04:57 10/01/17 04:57 10/01/17 04:57 10/01/17 04:57 General appearance: no acute distress HEENT: Positive: Normocephaly, Mucus Membranes Moist Neck: Positive: neck supple, trachea midline. Negative: JVD/HJR Cardiac: Positive: Regular Rate, S1/S2, S3, PMI, Laterally Displaced Lungs: Positive: clear to auscultation, No Wheeze, Rales, Rhonchi Neuro: Positive: Grossly Intact, Sensory Function Intact, No Lateralizing Findings Abdomen: Positive: Unremarkable, Soft, Active Bowel Sounds Skin: Positive: Clear. Negative: Rash Extremities: Absent: edema Results 10/03/17 07:57 10/02/17 04:27 Cardiac Enzymes 10/02/17 10/02/17 Range/Units 10:09 15:00 CK-MB (CK-2) 5.2 H 4.1 H (0.0-4.0) ng/mL CBC 10/03/17 Range/Units 07:57 Hgb 8.7 L (10.1-14.3) gm/dl Hct 27.1 L (30.3-42.9) % Plt Count 235 (140-440) K/mm3 - EKG Interpretation EKG: sinus rhythm, normal axis EKG interpretations - Telemetry EKG Rhythm: Sinus Rhythm Assessment and Plan 1. Precordial chest pain rule out underlying ischemic coronary artery disease 2. History of coronary artery disease status post CABG 3. Type 2 diabetes mellitus 4. Hyperlipidemia lipidemia 5. Diabetic neuropathy Plan. Patient is currently chest pain-free we will obtain a Lexiscan MP I will assess for the presence and extent of ischemic coronary artery disease.
[2017-10-03] MEDS: ZESTRIL PO SCH (11:34)
[2017-10-03] MEDS: celeXA PO SCH (11:35)
[2017-10-03] MEDS: LASIX PO SCH (11:36)
[2017-10-03] MEDS: NEURONTIN PO SCH ×2 (11:36→22:45)
[2017-10-03] MEDS: PEPCID IV SCH (11:36)
[2017-10-03] MEDS: NORVASC PO SCH (11:36)
[2017-10-03] MEDS: SODIUM CHLORIDE FLUSH SYRINGE 10 ML IV SCH ×3 (11:37→23:27)
[2017-10-03] MEDS: CARAFATE PO SCH ×4 (11:38→22:45)
[2017-10-03] MEDS: HumaLOG SUB-Q SCH ×4 (11:39→22:45)
[2017-10-03] MEDS: CORGARD PO SCH (11:40)
--- NOTE | 2017-10-03 12:14 | History and Physical Report ---
CHIEF COMPLAINT: Left-sided chest pain since 1:00 a.m. in the morning. HISTORY OF PRESENT ILLNESS: A 77-year-old female presents with left-sided chest pain since 1:00 a.m. It is dull in character, radiating to the left extremity. The patient took baby aspirin, but the pain persisted. Took the second baby aspirin after which the chest pain subsided. The patient went to the bathroom and fell striking her head. Denies loss of consciousness. States she has a headache. No diaphoresis, no palpitations. No shortness of breath. The patient was hypoxic in the Emergency Room for which she was placed on 100% nonrebreather. Cardiopulmonary was updated and CT angiogram was performed, which was negative for PE. CT chest shows mild vascular congestion. [facility] gave permission to admit the patient to [facility]. PAST MEDICAL HISTORY: Past medical history is significant for hypertension, coronary artery disease, PR in the past, diabetes, arthritis, anxiety. SURGICAL HISTORY: Open heart surgery in the past and hysterectomy. FAMILY HISTORY: No significant family history. SOCIAL HISTORY: Former smoker. CURRENT MEDICATIONS: On the chart including insulin 35 units of Lantus and NPH at nighttime and Humalog mix 75/25, 40 units in the morning, Lasix 40 mg daily, amlodipine ____ daily, the other 20 part is benazepril. REVIEW OF SYSTEMS: Review of systems is significant for left-sided chest pain and the fall, but not syncope; also hypoxia in the ER. Otherwise, review of systems is essentially negative. A 14-point review of systems is done. PHYSICAL EXAMINATION: GENERAL: Elderly female, cooperative during examination. VITAL SIGNS: Blood pressure is 146/91, temperature is 97.9, pulse is 109, respirations are 12. HEENT: Unremarkable. Pupils are equal and reactive. NECK: Supple, no lymphadenopathy, no thyromegaly. LUNGS: Are clear to auscultation and percussion. Good air entry. CARDIOVASCULAR: S1, S2 heard. No gallop, no murmur, no rub. Apical impulse is in left fifth intercostal space and midclavicular line. ABDOMEN: Soft and benign. No hepatosplenomegaly, no guarding, no rigidity. Hernial orifices are normal. EXTREMITIES: Good pedal pulses. No pedal edema. CENTRAL NERVOUS SYSTEM: Alert and oriented x 4, nonfocal examination. SKIN: Normal. LABORATORY AND DIAGNOSTIC DATA: Labs are significant for white count of 7000, H and H of 7.5 and 24.0, platelet count of 246,000. Electrolytes are normal. Troponin is 0.031 and 0.043. Total CK is 164. Lipid profile is normal. EKG shows ST depressions in lead 2, lead 3, aVF, V4, V6 consistent with subendocardial ischemia. Chest x-ray shows no infiltrates. CT head shows diffuse cerebral edema. ASSESSMENT AND PLAN: 1. Non-ST elevation myocardial infarction. The patient is started on heparin drip. Cardiology consulted. Dr. Quintanilla has seen the patient while in the ER. 2. Acute anemia. We will transfuse 1-2 units of blood. For possible iron deficiency anemia, iron levels and B12, and folic acid levels ordered. 3. Insulin-dependent diabetes. Continue home insulin and coverage. 4. Hypertension. Continue amlodipine, benazepril, and Corgard. 5. Gastroesophageal reflux disease. Continue sucralfate and Protonix. 6. Peripheral neuropathy. Continue gabapentin 300 mg twice a day. 7. Deep venous thrombosis prophylaxis. Heparin 5000 q. 12 hours. CRITICAL CARE STATEMENT: Time spent for critical care 35 minutes. In summary, the patient has non-STEMI, insulin-dependent diabetes, hypertension, acute respiratory failure. INITIAL ASSESSMENT AND PLAN: Acute respiratory failure, etiology unclear. CT angiogram was negative. MTDD
--- NOTE | 2017-10-03 12:28 | Progress Note ---
Assessment and Plan Assessment and plan: --Non-ST elevation PA; mild elevation of cardiac enzymes Ischemia needs to be ruled out in the setting of coronary artery disease status post CABG Cardiology evaluated the patient, stress test tomorrow Continue current cardiac medications, heparin drip --History of coronary artery disease status post CABG; continue current cardiac medicines --Dyslipidemia; continue statin --Type 2 diabetes mellitus; Accu-Chek sliding scale coverage and ADA diet and insulin hemoglobin A1c 9.5 --Diabetic neuropathy; continue gabapentin --DVT prophylaxis; patient is already on heparin drip --Full CODE STATUS Closely monitor the patient and adjust the management as needed Plan of care is reviewed with the patient, her nurse and the control clerk head. Disposition ;Follow stress test tomorrow if negative and stable patient can be discharged home History Interval history: Patient seen and examined, medical records reviewed No new events reported Denies chest pain or shortness of breath Cardiology scheduled for stress test tomorrow Vital signs reviewed stable Hospitalist Physical - Constitutional Vitals: Temp Pulse Resp BP Pulse Ox 97.9 F 69 18 111/53 92 10/03/17 07:08 10/03/17 07:08 10/03/17 07:08 10/03/17 07:08 10/03/17 07:08 General appearance: Present: no acute distress, well-nourished - EENT Eyes: Present: PERRL, EOM intact - Neck Neck: Present: supple, normal ROM - Respiratory Respiratory effort: normal Respiratory: bilateral: diminished, negative: rales, rhonchi, wheezing - Cardiovascular Rhythm: regular Heart Sounds: Present: S1 & S2 - Extremities Extremities: no ischemia, No edema - Abdominal General gastrointestinal: soft, non-tender, non-distended, normal bowel sounds - Integumentary Integumentary: Present: clear, warm - Psychiatric Psychiatric: appropriate mood/affect, cooperative - Neurologic Neurologic: CNII-XII intact, moves all extremities Results - Labs CBC & Chem 7: 10/03/17 07:57 10/02/17 04:27 Labs: Laboratory Last Values WBC 7.8 K/mm3 (4.5-11.0) 10/02/17 04:27 RBC 3.86 M/mm3 (3.65-5.03) 10/02/17 04:27 Hgb 8.7 gm/dl (10.1-14.3) L 10/03/17 07:57 Hct 27.1 % (30.3-42.9) L 10/03/17 07:57 MCV 72 fl (79-97) L 10/02/17 04:27 MCH 22 pg (28-32) L 10/02/17 04:27 MCHC 31 % (30-34) 10/02/17 04:27 RDW 16.3 % (13.2-15.2) H 10/02/17 04:27 Plt Count 235 K/mm3 (140-440) 10/03/17 07:57 Lymph % (Auto) C Software Developer 10/02/17 04:27 [place] % (Auto) C Software Developer 10/02/17 04:27 Eos % (Auto) C Software Developer 10/02/17 04:27 Baso % (Auto) C Software Developer 10/02/17 04:27 Lymph # C Software Developer 10/02/17 04:27 [place] # C Software Developer 10/02/17 04:27 Eos # C Software Developer 10/02/17 04:27 Baso # C Software Developer 10/02/17 04:27 Seg Neutrophils % C Software Developer 10/02/17 04:27 Seg Neutrophils # C Software Developer 10/02/17 04:27 PT 14.1 Sec. (12.2-14.9) 10/01/17 08:22 INR 1.04 (0.87-1.13) 10/01/17 08:22 APTT 25.0 Sec. (24.2-36.6) 10/01/17 08:22 Heparin Anti-Xa Level 0.34 U.I./ml (0.3-0.7) 10/03/17 08:24 Sodium 139 mmol/L (137-145) 10/02/17 04:27 Potassium 4.2 mmol/L (3.6-5.0) 10/02/17 04:27 Chloride 101.7 mmol/L (98-107) 10/02/17 04:27 Carbon Dioxide 23 mmol/L (22-30) 10/02/17 04:27 Anion Gap 19 mmol/L 10/02/17 04:27 BUN 8 mg/dL (7-17) 10/02/17 04:27 Creatinine 0.8 mg/dL (0.7-1.2) 10/02/17 04:27 Estimated GFR > 60 ml/min 10/02/17 04:27 BUN/Creatinine Ratio 10 % 10/02/17 04:27 Glucose 228 mg/dL (65-100) H 10/02/17 04:27 POC Glucose 172 (70-105) H 10/03/17 09:19 Hemoglobin A1c 9.5 % (4-6) H 10/01/17 01:00 Calcium 9.0 mg/dL (8.4-10.2) 10/02/17 04:27 Total Bilirubin 0.40 mg/dL (0.1-1.2) 10/02/17 04:27 AST 21 units/L (5-40) 10/02/17 04:27 ALT 11 units/L (7-56) 10/02/17 04:27 Alkaline Phosphatase 74 units/L (35-129) 10/02/17 04:27 Total Creatine Kinase 99 units/L (30-135) 10/02/17 15:00 CK-MB (CK-2) 4.1 ng/mL (0.0-4.0) H 10/02/17 15:00 CK-MB (CK-2) Rel Index 4.1 (0-4) H 10/02/17 15:00 Troponin T 0.087 ng/mL (0.00-0.029) H 10/02/17 15:00 Total Protein 6.4 g/dL (6.3-8.2) 10/02/17 04:27 Albumin 3.7 g/dL (3.9-5) L 10/02/17 04:27 Albumin/Globulin Ratio 1.4 % 10/02/17 04:27 Triglycerides 82 mg/dL (2-149) 10/01/17 06:40 Cholesterol 172 mg/dL (50-199) 10/01/17 06:40 LDL Cholesterol Direct 123 mg/dL (50-130) 10/01/17 06:40 HDL Cholesterol 50 mg/dL (40-59) 10/01/17 06:40 Cholesterol/HDL Ratio 3.44 % 10/01/17 06:40
[2017-10-03] MEDS: HEPARIN/ 0.45% NACL-25,000 UNIT/500 ML 25,000 UNIT/500 ML BAG IV SCH (23:28)
[2017-10-04] MEDS: CARAFATE PO SCH ×4 (09:11→22:47)
[2017-10-04] MEDS: HumaLOG SUB-Q SCH ×4 (09:11→22:48)
[2017-10-04] MEDS: ZESTRIL PO SCH (10:47)
[2017-10-04] MEDS: SODIUM CHLORIDE FLUSH SYRINGE 10 ML IV SCH (10:47)
[2017-10-04] MEDS: PEPCID IV SCH (10:47)
[2017-10-04] MEDS: NEURONTIN PO SCH ×2 (10:48→22:49)
[2017-10-04] MEDS: LASIX PO SCH (10:48)
[2017-10-04] MEDS: NORVASC PO SCH (10:49)
[2017-10-04] MEDS: CORGARD PO SCH (10:50)
[2017-10-04] MEDS: celeXA PO SCH (10:51)
[2017-10-04] MEDS ORDERED: LEXISCAN IV ONE ×2 (11:39→11:41)
--- NOTE | 2017-10-04 11:47 | Progress Note ---
Assessment and Plan Chest pain Recent fall Hx coronary artery disease status post CABG 2012 Diabetes mellitus Hypertension Awaits sobiaan today, for further cardiac evaluation. Subjective Date of service: 10/04/17 Interval history: Patient is resting in bed comfortably. Awaits thallium stress test ordered for today. Objective Vital Signs Temp Pulse Pulse Resp BP BP Pulse Ox 10/04/17 10:50 72 136/54 10/04/17 10:49 72 136/56 10/04/17 10:47 72 136/84 10/04/17 09:17 98.0 F 18 136/54 10/04/17 04:35 98.4 F 75 18 110/52 91 10/04/17 00:31 98.1 F 77 18 150/56 94 10/03/17 22:00 74 16 98 10/03/17 19:30 98.1 F 73 18 125/57 96 10/03/17 15:07 97.9 F 73 18 92/40 95 10/03/17 12:47 98.0 F 86 18 110/60 95 - Physical Examination General: No Apparent Distress Cardiac: Positive: Reg Rate and Rhythm Neuro: Positive: Grossly Intact Extremities: Absent: edema
--- NOTE | 2017-10-04 19:40 | Progress Note ---
Assessment and Plan Assessment and plan: --Non-ST elevation SD; mild elevation of cardiac enzymes Ischemia needs to be ruled out in the setting of coronary artery disease status post CABG Cardiology evaluated the patient, stress test today Continue current cardiac medications, heparin drip --History of coronary artery disease status post CABG; continue current cardiac medicines --Dyslipidemia; continue statin --Type 2 diabetes mellitus; uncontrolled, patient did not receive her insulin as she is nothing by mouth Will resume insulin after stress test closely monitor Accu-Chek sliding scale coverage and ADA diet and insulin, hemoglobin A1c 9.5 --Diabetic neuropathy; continue gabapentin --DVT prophylaxis; patient is already on heparin drip --Full CODE STATUS Closely monitor the patient and adjust the management as needed Plan of care is reviewed with the patient, her nurse and the lift builder whole. Disposition ; Follow stress test if negative and patient is stable patient can be discharged home History Interval history: Patient seen and examined medical records reviewed No new events reported by the nursing staff Schedule for stress test today Patient complains of generalized weakness Vital signs reviewed Hospitalist Physical - Constitutional Vitals: Temp Pulse Resp BP Pulse Ox 98.0 F 72 18 120/57 91 10/04/17 09:17 10/04/17 11:59 10/04/17 09:17 10/04/17 11:59 10/04/17 04:35 General appearance: Present: no acute distress, well-nourished - EENT Eyes: Present: PERRL, EOM intact - Neck Neck: Present: supple, normal ROM - Respiratory Respiratory effort: normal Respiratory: negative: rales, rhonchi, wheezing - Cardiovascular Rhythm: regular Heart Sounds: Present: S1 & S2 - Extremities Extremities: no ischemia, No edema - Abdominal General gastrointestinal: soft, non-tender, non-distended, normal bowel sounds - Integumentary Integumentary: Present: clear, warm - Psychiatric Psychiatric: appropriate mood/affect, cooperative - Neurologic Neurologic: CNII-XII intact, moves all extremities Results - Labs CBC & Chem 7: 10/03/17 07:57 10/02/17 04:27 Labs: Laboratory Last Values WBC 7.8 K/mm3 (4.5-11.0) 10/02/17 04:27 RBC 3.86 M/mm3 (3.65-5.03) 10/02/17 04:27 Hgb 8.7 gm/dl (10.1-14.3) L 10/03/17 07:57 Hct 27.1 % (30.3-42.9) L 10/03/17 07:57 MCV 72 fl (79-97) L 10/02/17 04:27 MCH 22 pg (28-32) L 10/02/17 04:27 MCHC 31 % (30-34) 10/02/17 04:27 RDW 16.3 % (13.2-15.2) H 10/02/17 04:27 Plt Count 235 K/mm3 (140-440) 10/03/17 07:57 Lymph % (Auto) Stock Clipper 10/02/17 04:27 [place] % (Auto) Stock Clipper 10/02/17 04:27 Eos % (Auto) Stock Clipper 10/02/17 04:27 Baso % (Auto) Stock Clipper 10/02/17 04:27 Lymph # Stock Clipper 10/02/17 04:27 [place] # Stock Clipper 10/02/17 04:27 Eos # Stock Clipper 10/02/17 04:27 Baso # Stock Clipper 10/02/17 04:27 Seg Neutrophils % Stock Clipper 10/02/17 04:27 Seg Neutrophils # Stock Clipper 10/02/17 04:27 PT 14.1 Sec. (12.2-14.9) 10/01/17 08:22 INR 1.04 (0.87-1.13) 10/01/17 08:22 APTT 25.0 Sec. (24.2-36.6) 10/01/17 08:22 Heparin Anti-Xa Level 0.21 U.I./ml (0.3-0.7) L 10/04/17 07:00 Sodium 139 mmol/L (137-145) 10/02/17 04:27 Potassium 4.2 mmol/L (3.6-5.0) 10/02/17 04:27 Chloride 101.7 mmol/L (98-107) 10/02/17 04:27 Carbon Dioxide 23 mmol/L (22-30) 10/02/17 04:27 Anion Gap 19 mmol/L 10/02/17 04:27 BUN 8 mg/dL (7-17) 10/02/17 04:27 Creatinine 0.8 mg/dL (0.7-1.2) 10/02/17 04:27 Estimated GFR > 60 ml/min 10/02/17 04:27 BUN/Creatinine Ratio 10 % 10/02/17 04:27 Glucose 228 mg/dL (65-100) H 10/02/17 04:27 POC Glucose 367 (70-105) H 10/04/17 16:51 Hemoglobin A1c 9.5 % (4-6) H 10/01/17 01:00 Calcium 9.0 mg/dL (8.4-10.2) 10/02/17 04:27 Total Bilirubin 0.40 mg/dL (0.1-1.2) 10/02/17 04:27 AST 21 units/L (5-40) 10/02/17 04:27 ALT 11 units/L (7-56) 10/02/17 04:27 Alkaline Phosphatase 74 units/L (35-129) 10/02/17 04:27 Total Creatine Kinase 99 units/L (30-135) 10/02/17 15:00 CK-MB (CK-2) 4.1 ng/mL (0.0-4.0) H 10/02/17 15:00 CK-MB (CK-2) Rel Index 4.1 (0-4) H 10/02/17 15:00 Troponin T 0.087 ng/mL (0.00-0.029) H 10/02/17 15:00 Total Protein 6.4 g/dL (6.3-8.2) 10/02/17 04:27 Albumin 3.7 g/dL (3.9-5) L 10/02/17 04:27 Albumin/Globulin Ratio 1.4 % 10/02/17 04:27 Triglycerides 82 mg/dL (2-149) 10/01/17 06:40 Cholesterol 172 mg/dL (50-199) 10/01/17 06:40 LDL Cholesterol Direct 123 mg/dL (50-130) 10/01/17 06:40 HDL Cholesterol 50 mg/dL (40-59) 10/01/17 06:40 Cholesterol/HDL Ratio 3.44 % 10/01/17 06:40
[2017-10-05] MEDS: SODIUM CHLORIDE FLUSH SYRINGE 10 ML IV SCH ×2 (00:02→09:38)
[2017-10-05 07:23] LABS: Hematocrit 29.4 % (30.3-42.9); Hemoglobin 9.4 gm/dl (10.1-14.3)
[2017-10-05] MEDS: PERCOCET 5/325 PO PRN ×3 (08:05→18:39)
[2017-10-05] MEDS: CARAFATE PO SCH ×3 (08:32→18:00)
[2017-10-05] MEDS: HumaLOG SUB-Q SCH ×3 (08:33→17:59)
[2017-10-05] MEDS: NEURONTIN PO SCH (09:36)
[2017-10-05] MEDS: celeXA PO SCH (09:37)
[2017-10-05] MEDS: NORVASC PO SCH (09:37)
[2017-10-05] MEDS: ZESTRIL PO SCH (09:37)
[2017-10-05] MEDS: CORGARD PO SCH (09:37)
[2017-10-05] MEDS: LASIX PO SCH (09:37)
[2017-10-05] MEDS ORDERED: HALFPRIN EC PO SCH (10:00)
[2017-10-05] MEDS ORDERED: PEPCID PO SCH (10:00)
--- NOTE | 2017-10-05 10:58 | Discharge Summary ---
Providers - Providers Date of Admission: 10/01/17 15:56 Date of discharge: 10/05/17 Attending physician: STEPHEN JENKINS Primary care physician: TRADE MARK ATTORNEY Hospitalization Reason for admission: chest pain Condition: Serious Hospital course: 77-year-old female patient with significant past medical history of coronary artery disease status post CABG dyslipidemia and type 2 diabetes mellitus diabetic neuropathy was admitted through emergency room with chest pain Noted to have mild elevation of troponins, admitted as non-ST elevation AL Evaluation by cardiology, subsequently underwent stress test which was negative for reversible ischemia Patient was symptomatically managed Symptoms significantly improved Today patient is comfortable in bed no new complaints Vital signs reviewed stable [id number] evaluation physical examination done by me at discharge is unremarkable Patient is hemodynamically and clinically stable at discharge Final diagnosis; --Non-ST elevation AL; stress test negative --History of coronary artery disease status post CABG; --Dyslipidemia; continue statin --Type 2 diabetes mellitus; --Diabetic neuropathy; continue gabapentin --Hypertension Disposition: TO HOME OR SELFCARE Time spent for discharge: 32 min Core Measure Documentation - Palliative Care Palliative Care/ Comfort Measures: Not Applicable - Core Measures Any of the following diagnoses?: none Exam - Constitutional Vitals: Temp Pulse Resp BP Pulse Ox 98.0 F 70 18 144/60 95 10/05/17 07:24 10/05/17 10:00 10/05/17 07:24 10/05/17 07:24 10/05/17 07:24 General appearance: Present: no acute distress, well-nourished - EENT Eyes: Present: PERRL, EOM intact - Neck Neck: Present: supple, normal ROM - Respiratory Respiratory effort: normal Respiratory: bilateral: diminished, negative: rales, rhonchi, wheezing - Cardiovascular Rhythm: regular Heart Sounds: Present: S1 & S2 - Extremities Extremities: no ischemia, No edema - Abdominal General gastrointestinal: Present: soft, non-tender, non-distended, normal bowel sounds - Integumentary Integumentary: Present: clear, warm - Musculoskeletal Musculoskeletal: strength equal bilaterally - Psychiatric Psychiatric: appropriate mood/affect, cooperative - Neurologic Neurologic: CNII-XII intact, moves all extremities Plan Activity: advance as tolerated, fall precautions Diet: diabetic, other (cardiac) Additional Instructions: If you have chest pain or shortness of breath contact M.D. or go to emergency room. Continue all her your home medications as before Follow up with: EDITH CAVAZOS MD [Primary Care Provider] - 3-5 Days VANI WARREN MD [Staff Physician] - 7 Days
--- NOTE | 2017-10-05 12:38 | Nuclear Perfusion Study ---
INDICATION: Chest pain. ORDERING PHYSICIAN: Dr. Deborah Mclaughlin. FINDINGS: There is no scintigraphic evidence of myocardial ischemia. The left ventricle is normal in size and systolic function. The left ventricular ejection fraction is measured at 63%. There is normal wall motion and wall thickening on gated imaging. CONCLUSION: 1. This is normal perfusion scan. 2. Normal left ventricular size and systolic function. [facility]
--- NOTE | 2017-10-05 12:56 | Cat Scan Report ---
CTA CHEST: HISTORY: Chest pain, hypoxia. COMPARISON: none. TECHNIQUE: Helical CT in 1.25mm intervals following IV contrast. Pulmonary embolus protocol. Sagittal and coronal reformatted images. Rotational MIP images. FINDINGS: Contrast bolus is satisfactory. No pulmonary embolus is identified. Thyroid gland: Normal. Tracheobronchial tree: Normal. Esophagus: Normal. Heart: Normal. Pericardium: Normal. Mediastinum: Normal. Lung Jenkins: Adequately aerated. Mild interstitial edema is suspected throughout both lungs. No evidence for infiltrate or mass. Pleural Spaces: Trace bilateral pleural effusions. Musculoskeletal: Intact. IMPRESSION: No evidence for pulmonary embolus. Mild vascular congestion and trace bilateral pleural effusions.
[2017-10-05 16:46] VITALS: BP 101/46
--- NOTE | 2017-10-07 07:36 | History and Physical Report ---
CHIEF COMPLAINT: Left-sided chest pain since 1:00 a.m. in the morning. HISTORY OF PRESENT ILLNESS: A 77-year-old female presents with left-sided chest pain since 1:00 a.m. It is dull in character, radiating to the left extremity. The patient took baby aspirin, but the pain persisted. Took the second baby aspirin after which the chest pain subsided. The patient went to the bathroom and fell striking her head. Denies loss of consciousness. States she has a headache. No diaphoresis, no palpitations. No shortness of breath. The patient was hypoxic in the Emergency Room for which she was placed on 100% nonrebreather. Cardiopulmonary was updated and CT angiogram was performed, which was negative for PE. CT chest shows mild vascular congestion. [facility] gave permission to admit the patient to [facility]. PAST MEDICAL HISTORY: Past medical history is significant for hypertension, coronary artery disease, [place] in the past, diabetes, arthritis, anxiety. SURGICAL HISTORY: Open heart surgery in the past and hysterectomy. FAMILY HISTORY: No significant family history. SOCIAL HISTORY: Former smoker. CURRENT MEDICATIONS: On the chart including insulin 35 units of Lantus and NPH at nighttime and Humalog mix 75/25, 40 units in the morning, Lasix 40 mg daily, amlodipine ____ daily, the other 20 part is benazepril. REVIEW OF SYSTEMS: Review of systems is significant for left-sided chest pain and the fall, but not syncope; also hypoxia in the ER. Otherwise, review of systems is essentially negative. A 14-point review of systems is done. PHYSICAL EXAMINATION: GENERAL: Elderly female, cooperative during examination. VITAL SIGNS: Blood pressure is 146/91, temperature is 97.9, pulse is 109, respirations are 12. HEENT: Unremarkable. Pupils are equal and reactive. NECK: Supple, no lymphadenopathy, no thyromegaly. LUNGS: Are clear to auscultation and percussion. Good air entry. CARDIOVASCULAR: S1, S2 heard. No gallop, no murmur, no rub. Apical impulse is in left fifth intercostal space and midclavicular line. ABDOMEN: Soft and benign. No hepatosplenomegaly, no guarding, no rigidity. Hernial orifices are normal. EXTREMITIES: Good pedal pulses. No pedal edema. CENTRAL NERVOUS SYSTEM: Alert and oriented x 4, nonfocal examination. SKIN: Normal. LABORATORY AND DIAGNOSTIC DATA: Labs are significant for white count of 7000, H and H of 7.5 and 24.0, platelet count of 246,000. Electrolytes are normal. Troponin is 0.031 and 0.043. Total CK is 164. Lipid profile is normal. EKG shows ST depressions in lead 2, lead 3, aVF, V4, V6 consistent with subendocardial ischemia. Chest x-ray shows no infiltrates. CT head shows diffuse cerebral edema. ASSESSMENT AND PLAN: 1. Non-ST elevation myocardial infarction. The patient is started on heparin drip. Cardiology consulted. Dr. Quintanilla has seen the patient while in the ER. 2. Acute anemia. We will transfuse 1-2 units of blood. For possible iron deficiency anemia, iron levels and B12, and folic acid levels ordered. 3. Insulin-dependent diabetes. Continue home insulin and coverage. 4. Hypertension. Continue amlodipine, benazepril, and Corgard. 5. Gastroesophageal reflux disease. Continue sucralfate and Protonix. 6. Peripheral neuropathy. Continue gabapentin 300 mg twice a day. 7. Deep venous thrombosis prophylaxis. Heparin 5000 q. 12 hours. CRITICAL CARE STATEMENT: Time spent for critical care 35 minutes. In summary, the patient has non-STEMI, insulin-dependent diabetes, hypertension, acute respiratory failure. INITIAL ASSESSMENT AND PLAN: Acute respiratory failure, etiology unclear. CT angiogram was negative. JOB# [id number] [facility]/NTS
--- NOTE | 2017-10-07 09:22 | Treadmill Report ---
INDICATION: Chest pain. ORDERING PHYSICIAN: Dr. Deborah Mclaughlin. FINDINGS: There is no scintigraphic evidence of myocardial ischemia. The left ventricle is normal in size and systolic function. The left ventricular ejection fraction is measured at 63%. There is normal wall motion and wall thickening on gated imaging. CONCLUSION: 1. This is normal perfusion scan. 2. Normal left ventricular size and systolic function. JOB# [id number] ALFREDO/NTS
== END 2017-10-05 18:50 | disposition home or self-care (01) | DRG 280 ==
LOC: ED 04:50 → CC1 15:56 → 4A 10-02 21:03
PROVIDERS: ADMIT Internal Medicine; ATTEND Internal Medicine
DX: I21.4 Non-ST elevation (NSTEMI) myocardial infarction (principal); J96.00 Acute respiratory failure, unspecified whether with hypoxia or hypercapnia; I25.10 Atherosclerotic heart disease of native coronary artery without angina pectoris; E11.40 Type 2 diabetes mellitus with diabetic neuropathy, unspecified; E78.5 Hyperlipidemia, unspecified; D64.9 Anemia, unspecified; S09.90XA Unspecified injury of head, initial encounter; K21.9 Gastro-esophageal reflux disease without esophagitis; I10 Essential (primary) hypertension; M19.90 Unspecified osteoarthritis, unspecified site; F41.9 Anxiety disorder, unspecified; Z90.710 Acquired absence of both cervix and uterus; Z95.1 Presence of aortocoronary bypass graft; Z79.899 Other long term (current) drug therapy; Z79.4 Long term (current) use of insulin; Z88.0 Allergy status to penicillin; Z88.2 Allergy status to sulfonamides
CPT/HCPCS: 36415; 70450; 71045; 71275; 72125; 78452; 80048; 80053; 80061; 82271; 82550; 82553; 82962; 83036; 84484; 85014; 85018; 85025; 85049; 85520; 85610; 85730; 93005; 93010; 93017; 93306; 94640; 96374; 96375; 96376; 99291; A9502; J1644; J1815; J2270; J2405; J2785; J7030; Q9967